=== PATIENT | male | born 1995 ===

== ENCOUNTER 2017-12-29 13:19 | Emergency (ER) | payer OTHER ==
[2017-12-29 13:25] VITALS: BP 134/69; PULSE 86; RESP 16; TEMP 97; O2SAT 99
--- NOTE | 2017-12-29 14:08 | ED PDOC ---
HPI: Back Time Seen by Provider: 12/29/17 13:50 Chief Complaint (Nursing): Back Pain Chief Complaint (Provider): Back pain History Per: Patient History/Exam Limitations: no limitations Onset/Duration Of Symptoms: Days (x2 months) Current Symptoms Are (Timing): Still Present Quality Of Discomfort: "Pain" Associated Symptoms: None Additional Complaint(s): Kimberly Damon is a 22 year old male, with no significant past medical history, who presents to the emergency department complaining of right thoracic spine pain onset for x2 months. Patient reports pain over the SI joint. He took motrin with no relief of symptoms. Patient denies any trauma, fever, chills, numbness, weakness, bladder or bowel incontinence. No further medical complaints. PMD: None provided. Past Medical History Reviewed: Historical Data, Nursing Documentation, Vital Signs Vital Signs: Last Vital Signs Temp 97.0 F L 12/29/17 13:23 Pulse 86 12/29/17 13:23 Resp 16 12/29/17 13:23 BP 134/69 12/29/17 13:23 Pulse Ox 99 12/29/17 13:23 - Medical History PMH: Asthma - Surgical History Surgical History: No Surg Hx - Family History Family History: States: Unknown Family Hx - Social History Current smoker - smoking cessation education provided: Yes (Current some days smoker) Alcohol: None Drugs: Cannabis - Immunization History Hx Tetanus Toxoid Vaccination: No - Home Medications Home Medications: Ambulatory Orders Medication Instructions Recorded Cyclobenzaprine [Cyclobenzaprine 10 mg PO Q8H PRN #12 tab 12/29/17 HCl] Ibuprofen [Motrin Tab] 800 mg PO Q6H PRN #20 tab 12/29/17 - Allergies Allergies/Adverse Reactions: Allergies Allergy/AdvReac Type Severity Reaction Status Date / Time diphenhydramine Allergy URTICARIA Verified 12/29/17 13:22 [From Benadryl] Penicillins Allergy SHORTNESS Verified 12/29/17 13:22 OF BREATH Review of Systems ROS Statement: Except As Marked, All Systems Reviewed And Found Negative Constitutional: Negative for: Fever, Chills Genitourinary Male: Negative for: Incontinence Musculoskeletal: Positive for: Back Pain Neurological: Negative for: Weakness, Numbness Physical Exam - Reviewed Nursing Documentation Reviewed: Yes Vital Signs Reviewed: Yes - Physical Exam Appears: Positive for: Non-toxic, No Acute Distress Head Exam: Positive for: ATRAUMATIC, NORMAL INSPECTION, NORMOCEPHALIC Skin: Positive for: Normal Color, Warm, Dry Eye Exam: Positive for: Normal appearance Neck: Positive for: Painless ROM Respiratory: Negative for: Respiratory Distress Back: Positive for: Other (Spine is nontender, but there is tenderness to the right of T-Spine. ) Extremity: Positive for: Normal ROM. Negative for: Deformity, Swelling Neurologic/Psych: Positive for: Alert, Oriented - ECG O2 Sat by Pulse Oximetry: 99 (RA) Pulse Ox Interpretation: Normal Medical Decision Making Medical Decision Making: Initial Impression: Back pain Initial Plan: --Flexeril 10 mg PO --Motrin tab 600 mg PO --Dorsal (Thoracic) Spine [RAD] --LS spine AP/LAT [RAD] --Reevaluation 15:20 Lumbar Spine X-Ray FINDINGS: BONES: Normal alignment. No listhesis. No fracture. DISC SPACES: Unremarkable. OTHER FINDINGS: None. IMPRESSION: Unremarkable radiographs of the lumbar spine. 15:20 Thoracic Spine X-Ray FINDINGS: BONES: Alignment maintained. No fracture. DISC SPACES: Normal. SOFT TISSUES: Normal. OTHER FINDINGS: None. IMPRESSION: Normal radiographs of the thoracic spine. ~ Scribe Attestation: Documented by Michele Coyle, acting as a scribe for Kyleigh Ventura PA-C. Provider Scribe Attestation: All medical record entries made by the Scribe were at my direction and personally dictated by me. I have reviewed the chart and agree that the record accurately reflects my personal performance of the history, physical exam, medical decision making, and the department course for this patient. I have also personally directed, reviewed, and agree with the discharge instructions and disposition. Disposition - Clinical Impression Clinical Impression: Back pain - Patient ED Disposition Is Patient to be Admitted: No Counseled Patient/Family Regarding: Diagnosis, Need For Followup, Rx Given - Disposition Disposition: Routine/Home Disposition Time: 15:52 Condition: GOOD Prescriptions: Cyclobenzaprine [Cyclobenzaprine HCl] 10 mg PO Q8H PRN #12 tab PRN Reason: Muscle Spasm Ibuprofen [Motrin Tab] 800 mg PO Q6H PRN #20 tab PRN Reason: Pain Instructions: Low Back Pain in Adults, Back Precautions Forms: [employer] (E[place]ian)
--- NOTE | 2017-12-29 15:21 | RAD ---
PROCEDURE: Radiographs of the Lumbar Spine. HISTORY: pain for two months, no trauma COMPARISON: No prior. FINDINGS: BONES: Normal alignment. No listhesis. No fracture. DISC SPACES: Unremarkable. OTHER FINDINGS: None. IMPRESSION: Unremarkable radiographs of the lumbar spine.
--- NOTE | 2017-12-29 15:21 | RAD ---
HISTORY: Pain for 2 months, no trauma COMPARISON: No prior. FINDINGS: BONES: Alignment maintained. No fracture. DISC SPACES: Normal. SOFT TISSUES: Normal. OTHER FINDINGS: None. IMPRESSION: Normal radiographs of the thoracic spine.
== END 2017-12-29 16:01 | disposition home or self-care (01) ==
LOC: H.ER 13:19
DX: M54.9 Dorsalgia, unspecified (principal); J45.909 Unspecified asthma, uncomplicated; Z88.0 Allergy status to penicillin